=== PATIENT | female | born 1970 | race Asian ===

== ENCOUNTER → 2016-02-18 | Outpatient (CLI) | payer BC ==
[~2016-02-18] MED LIST: EMTR1TAB11 PO; RALT400T4 PO
[2016-02-18 09:57] LABS: ALBUMIN 4.3 g/dl (3.3-4.9); POTASSIUM 4.3 mmol/L (3.5-5.1)
[2016-02-18 09:59] LABS: BILIRUBIN,INDIRECT 0.4 mg/dl (0-1.1); BILIRUBIN,TOTAL 0.4 mg/dl (0.2-1.3); CREATININE 0.76 mg/dl (0.44-1.00)
[2016-02-18 10:00] LABS: BASOPHILS % 0.6 % (0.0-2.0); EOSINOPHILS # 0.2 10^3/ul (0.0-0.5); EOSINOPHILS % 3.2 % (0.0-7.0); HEMATOCRIT 38.9 % (37.0-47.0); HEMOGLOBIN 13.7 g/dl (12.0-16.0); LYMPHOCYTES # 1.9 10^3/ul (0.8-2.9); LYMPHOCYTES % 34.4 % (15.0-51.0); MEAN CORPUSCULAR HEMOGLOBIN 31.8 pg (29.0-33.0); MEAN CORPUSCULAR HGB CONC 35.3 g/dl (32.0-37.0); MEAN CORPUSCULAR VOLUME 90.2 fl (82.0-101.0); MONOCYTE # 0.5 10^3/ul (0.3-0.9); MONOCYTES % 9.6 % (0.0-11.0); NEUTROPHIL # 2.9 10^3/ul (1.6-7.5); NEUTROPHILS % 52.2 % (39.0-77.0); PLATELET COUNT 233 10^3/UL (140-440); RED BLOOD COUNT 4.31 10^6/ul (4.20-5.40); RED CELL DISTRIBUTION WIDTH 13.2 % (11.5-14.5); TOTAL PROTEIN 7.9 g/dl (6.1-8.1); UNCORRECTED WBC 5.5 10^3/ul (4.8-10.8); WHITE BLOOD COUNT 5.5 10^3/ul (4.8-10.8)
[2016-02-18 10:01] LABS: CALCIUM 9.4 mg/dl (8.4-10.2)
[2016-02-18 10:06] LABS: CONDITION 1
[2016-02-18 10:07] LABS: ADD UMIC YES; URINE BILIRUBIN (Dip) NEGATIVE (NEGATIVE); URINE BLOOD (Dip) 2+ (NEGATIVE); URINE COLOR LT. YELLOW (YELLOW); URINE GLUCOSE (Dip) NEGATIVE (NEGATIVE); URINE KETONES (Dip) NEGATIVE (NEGATIVE); URINE LEUKOCYTE ESTERASE (Dip) NEGATIVE (NEGATIVE); URINE NITRITE (Dip) NEGATIVE (NEGATIVE); URINE TOTAL PROTEIN (Dip) 1+ (NEGATIVE); URINE UROBILINOGEN (Dip) 0.2 E.U./dL (0.1-1.0)
[2016-02-18 10:31] LABS: BACTERIA,URINE FEW
[2016-02-19 05:50] LABS: PROTEIN, TOTAL 7.1 g/dL (6.1-8.1)
--- NOTE | 2016-02-19 09:32 | RADRPT ---
PROCEDURE: XR Cervical Spine. CLINICAL INDICATION: Neck pain. TECHNIQUE: Three views of the cervical spine were performed. Frontal, lateral, and AP open-mouth o dontoid. The images were reviewed on a PACS workstation. COMPARISON: None. FINDINGS: There is normal stature and alignment of the vertebrae. There is no fracture. There is no lytic or blastic lesion. The disk height is normal. The prevertebral soft tissues are normal. IMPRESSION: 1. Unremarkable images of the cervical spine. RPTAT: QQ .Antonio Philip MD, MD Date Time Electronically viewed and signed by .Antonio Philip MD, MD on 02/19/2016 09:31 .R/
--- NOTE | 2016-02-19 09:32 | RADRPT ---
PROCEDURE: XR Lumbar Spine. CLINICAL INDICATION: Back pain. TECHNIQUE: Three views. AP, lateral and cone-down lateral view of the lumbar spine were obtained. COMPARISON: No prior studies are available for comparison. FINDINGS: There is normal stature and alignment of the vertebrae. There is no fracture. There is no lytic or blastic lesion. The disk height is normal. There are mild degenerative changes with small osteophytes in the lower lumbar spine. The paravertebral soft tissues are unremarkable. IMPRESSION: 1. Mild degenerative change of the lower lumbar spine. 2. Otherwise unremarkable study. RPTAT: QQ .Antonio Philip MD, Date Time Electronically viewed and signed by .Antonio Philip MD, on 02/19/2016 09:32 .R/
[2016-02-19 16:46] LABS: ALBUMIN 4.2 g/dL (3.8-4.8)
== END | disposition home or self-care (01) ==
LOC: LAB 09:03
PROVIDERS: ATTEND Internal Medicine
DX: M54.2 Cervicalgia (principal); M54.9 Dorsalgia, unspecified; M54.16 Radiculopathy, lumbar region
CPT/HCPCS: 72040; 72100; 80048; 80076; 81001; 81003; 83036; 84155; 84165; 85025

== ENCOUNTER → 2016-08-16 | Outpatient (CLI) | payer BC ==
[2016-08-16 11:16] LABS: ADD SCAN DIFF NO
[2016-08-16 11:35] LABS: BASOPHIL # 0.1 10^3/ul (0.0-0.1); EOSINOPHILS # 0.1 10^3/ul (0.0-0.5); EOSINOPHILS % 2.6 % (0.0-7.0); HEMATOCRIT 38.5 % (37.0-47.0); LYMPHOCYTES % 40.3 % (15.0-51.0); MEAN CORPUSCULAR HEMOGLOBIN 30.2 pg (29.0-33.0); MEAN CORPUSCULAR HGB CONC 33.8 g/dl (32.0-37.0); MEAN CORPUSCULAR VOLUME 89.3 fl (82.0-101.0); MONOCYTE # 0.5 10^3/ul (0.3-0.9); MONOCYTES % 9.1 % (0.0-11.0); NEUTROPHIL # 2.4 10^3/ul (1.6-7.5); PLATELET COUNT 248 10^3/UL (140-415); RED BLOOD COUNT 4.31 10^6/ul (4.20-5.40); RED CELL DISTRIBUTION WIDTH 12.3 % (11.5-14.5); WHITE BLOOD COUNT 5.1 10^3/ul (4.8-10.8)
[2016-08-16 11:46] LABS: ADD UMIC YES; UR ASCORBIC ACID NEGATIVE (NEGATIVE); UR BILIRUBIN (Dip) NEGATIVE (NEGATIVE); UR BLOOD (Dip) 1+ mg/dL (NEGATIVE); UR CLARITY CLEAR (CLEAR); UR COLOR STRAW (YELLOW); UR GLUCOSE (Dip) NEGATIVE (NEGATIVE); UR KETONES (Dip) NEGATIVE (NEGATIVE); UR LEUKOCYTE ESTERASE (Dip) NEGATIVE Leu/ul (NEGATIVE); UR NITRITE (Dip) NEGATIVE (NEGATIVE); UR RBC 0 /HPF (0-5); UR SPECIFIC GRAVITY (Dip) 1.008 (1.003-1.030); UR TOTAL PROTEIN (Dip) NEGATIVE (NEGATIVE); UR UROBILINOGEN (Dip) NEGATIVE (NEGATIVE)
[2016-08-16 12:06] LABS: ALBUMIN 4.9 g/dl (3.3-4.9); BILIRUBIN,INDIRECT 0.4 mg/dl (0-1.1); BILIRUBIN,TOTAL 0.4 mg/dl (0.2-1.3); CALCIUM 9.9 mg/dl (8.4-10.2); CHOL/HDL RATIO 3.2 RATIO; CREATININE 0.81 mg/dl (0.44-1.00); TOTAL PROTEIN 8.1 g/dl (6.1-8.1)
[2016-08-16 12:34] LABS: THYROID STIMULATING HORMONE 1.3 MIU/L (0.465-4.680)
[2016-08-16 13:03] LABS: IRON 103 ug/dl (35-150)
[2016-08-16 13:13] LABS: TOTAL IRON BINDING CAPACITY 303 ug/dl (241-421)
[2016-08-17 05:26] LABS: PROTEIN, TOTAL 7.2 g/dL (6.1-8.1)
[2016-08-17 20:57] LABS: ALBUMIN 4.3 g/dL (3.8-4.8)
== END | disposition home or self-care (01) ==
LOC: LAB 08-14 11:07
PROVIDERS: ATTEND Internal Medicine
DX: R73.09 Other abnormal glucose (principal); Z00.00 Encounter for general adult medical examination without abnormal findings
CPT/HCPCS: 80048; 80061; 80076; 81001; 82105; 82652; 83036; 83540; 84155; 84165; 84443; 85025

== ENCOUNTER → 2016-09-22 | Outpatient (CLI) | payer BC ==
--- NOTE | 2016-09-22 12:21 | RADRPT ---
PROCEDURE: US Pelvis. CLINICAL INDICATION: Dyspareunia. TECHNIQUE: Multiple sonographic images of the pelvis were obtained utilizing a transabdominal and endovaginal technique. The images were reviewed on a PACS workstation. COMPARISON: None available. FINDINGS: The uterus is normal in size and homogeneous in echotexture and measures 5.8 x 3.4 x 3.3 cm. The end ometrial echo complex is normal and measures 3.2 mm. The right ovary has a normal echotexture and measures 2.2 x 1.1 x 1.4 cm. The left ovary has a norm al echotexture and measures 1.9 x 0.8 x 1.2 cm. There is no free fluid in the cul-de-sac. No adnexal masses are noted. IMPRESSION: 1. Unremarkable pelvic ultrasound. RPTAT: [facility] Physician Rodrigo Date Time Electronically viewed and signed by Physician Rodrigo on 09/22/2016 12:21 /
--- NOTE | 2016-09-22 14:28 | RADRPT ---
PROCEDURE: US Thyroid. CLINICAL INDICATION: Thyroid nodule TECHNIQUE: Multiple sonographic images of the thyroid were obtained. Transverse and sagittal imagi ng of the gland and wale-thyroidal tissues was performed with a high frequency linear array transduc er. Color interrogation was performed as well. The images were reviewed on a PACS workstation. COMPARISON: No prior studies are available for comparison. FINDINGS: The thyroid gland is normal in shape, size and echogenicity. The right lobe of the thyroid gland morena sures 4.9 x 1.8 x 2.3 cm. The left lobe of the thyroid gland measures 4.7 x 1.3 x 1.7 cm. The isth mus is of normal thickness. Solid, hypervascular, slightly hyperechoic nodule is seen in the right mid pole, measuring 20 mm. No evidence of thyroid nodule is seen in the left lobe. IMPRESSION: 1. Solid 20 mm nodule is seen in the right mid pole - consider FNA for further evaluation. RPTAT: QQ .Delroy Whitmore MD, MD Date Time Electronically viewed and signed by .Delroy Whitmore MD, on 09/22/2016 14:28 .R/
== END | disposition home or self-care (01) ==
LOC: U/S 10:41
PROVIDERS: ATTEND Internal Medicine
DX: N94.10 Unspecified dyspareunia (principal)
CPT/HCPCS: 76536; 76830; 76856

== ENCOUNTER → 2017-04-13 | Outpatient (CLI) | END | disposition home or self-care (01) ==

== ENCOUNTER → 2017-04-16 | Outpatient (CLI) | END | disposition home or self-care (01) ==

== ENCOUNTER → 2017-07-11 | Outpatient (CLI) | END | disposition home or self-care (01) ==

== ENCOUNTER 2017-07-22 09:41 | Emergency (ER) | END 2017-07-22 11:46 | disposition home or self-care (01) ==